=== PATIENT | female | born 1965 | race Caucasian/White ===

== ENCOUNTER → 2024-08-01 | Outpatient (CLI) | payer OTHER ==
--- NOTE | 2024-08-03 07:53 | MM ---
Reason for Exam: Screening (asymptomatic). Last mammogram was performed 8 year(s) and 6 month(s) ago. Patient History: Menarche at age 11. First Full-Term at age 17. Hysterectomy at age 34. Patient has history of breast feeding. Other cancer, age 48. Patient used Hormonal Contraceptives for 4 years. Risk Values: Adela 5 year model risk: 1.1%. NCI Lifetime model risk: 6.1%. Prior Study Comparison: 11/04/2014 Bilateral Screening Mammogram, [facility]. 02/04/2016 Bilateral Screening Mammogram, [facility]. Tissue Density: The breasts are heterogeneously dense, which may obscure small masses. Findings: Analyzed By CAD. Asymmetric density central right cc view as well as outer right cc view of both middle depth appear more defined. These may represent superimposition shadow but further evaluation is recommended. On the left, lateral asymmetric density on the CC view middle depth is suspected superimposition shadow and can be confirmed with spot compression. No suspicious calcification or other discrete abnormality is seen. Overall Assessment: Incomplete: need additional imaging evaluation, BI-RAD 0 Management: Special View Mammogram of both breasts. Include 3-D CC rolled views on both sides. [facility] will attempt to contact patient to return for supplemental views and ultrasound if indicated. [facility], , 08/03/2024 7:50 AM. Electronically signed and approved by: Gamal Boyd M.D. Radiologist
== END | disposition home or self-care (01) ==
LOC: RADMAMWWP 16:23
PROVIDERS: ATTEND Family Medicine
DX: Z12.31 Encounter for screening mammogram for malignant neoplasm of breast (principal); R92.333 Mammographic heterogeneous density, bilateral breasts; Z92.0 Personal history of contraception
CPT/HCPCS: 77063; 77067

== ENCOUNTER → 2024-08-09 | Outpatient (CLI) | payer OTHER ==
--- NOTE | 2024-08-09 08:53 | MM ---
Reason for Exam: Additional evaluation requested from abnormal screening. Last screening mammogram was performed less than 1 month ago. Patient History: Menarche at age 11. First Full-Term at age 17. Hysterectomy at age 34. Postmenopausal. Patient has history of breast feeding. Patient used Hormonal Contraceptives for 4 years. Risk Values: Adela 5 year model risk: 1.1%. NCI Lifetime model risk: 6.1%. Prior Study Comparison: 02/04/2016 Bilateral Screening Mammogram, [facility]. 08/01/2024 Bilateral MG 3D screening mammo w/cad, [facility]. Tissue Density: The breasts are heterogeneously dense, which may obscure small masses. Findings: Analyzed By CAD. Area of concern/asymmetries bilaterally compresses out on spot compression imaging. No suspicious masses, calcifications or distortions. Overall Assessment: Benign, BI-RAD 2 Management: Screening Mammogram of both breasts. Results were given to the patient verbally at the time of exam. Patient should continue monthly self-breast exams. A clinical breast exam by your physician is recommended on an annual basis. This exam should not preclude additional follow-up of suspicious palpable abnormalities. Note on Adela scores and lifetime risk: 1. A Adela score greater than 3% is considered moderate risk. If this is the case, consider specialist referral to assess eligibility for a risk reducing agent. 2. If overall lifetime risk for the development of breast cancer is 20% or higher, the patient may qualify for future screening with alternating mammogram and breast MRI. [facility], , 08/09/2024 8:50 AM. Electronically signed and approved by: Lee Dykes DO
== END | disposition home or self-care (01) ==
LOC: RADMAMWWP 08:07
PROVIDERS: ATTEND Family Medicine
DX: R92.8 Other abnormal and inconclusive findings on diagnostic imaging of breast (principal); R92.333 Mammographic heterogeneous density, bilateral breasts; Z78.0 Asymptomatic menopausal state; Z92.0 Personal history of contraception
CPT/HCPCS: 77066; G0279; 77062